=== PATIENT | female | born 1940 | race African-American/Black ===

== ENCOUNTER 2020-10-02 06:51 | Inpatient (IN) | payer MEDICARE, MEDICAID ==
[~2020-10-02] VITALS: Ht 157.5 cm; Wt 65.8 kg
[~2020-10-02 06:51] MED LIST: ALPR0.25; AMLO10TA4; DABI150C PO; SIMV10TA2; SOTA80TA; TRAM50TA3
[2020-10-02] MEDS ORDERED: IOHEXOL-350 100 ML BOTTLE ONE (07:36)
[2020-10-02 07:48] LABS: CLARITY URINE CLOUDY (CLEAR); COLOR URINE YELLOW (YELLOW); KETONES URINE NEGATIVE (NEGATIVE); LEUKOCYTE ESTERASE URINE 2+ (NEGATIVE); NITRITE URINE NEGATIVE (NEGATIVE); OCCULT BLOOD URINE 2+ (NEGATIVE); PH URINE 7.5 (4.5-8.0); PROTEIN URINE NEGATIVE (NEGATIVE); SPECIFIC GRAVITY URINE 1.014 (1.005-1.030); UROBILINOGEN URINE 0.2 E.U./dL (0.2-1.0)
[2020-10-02 08:06] LABS: *AMPHETAMINES SCREEN URINE NEGATIVE (NEGATIVE); *BARBITURATES SCREEN URINE NEGATIVE (NEGATIVE); *BENZODIAZEPINES SCREEN URINE NEGATIVE (NEGATIVE)
[2020-10-02 08:07] LABS: *COCAINE SCREEN URINE NEGATIVE (NEGATIVE); CANNABINOID URINE SCREEN NEGATIVE (NEGATIVE); METHADONE URINE SCREEN NEGATIVE (NEGATIVE); OPIATES URINE SCREEN NEGATIVE (NEGATIVE); PHENCYCLIDINE URINE SCREEN NEGATIVE (NEGATIVE)
[2020-10-02 08:38] LABS: BASOPHILS % 0.5 % (0.0-2.0); EOSINOPHILS % 4.2 % (0.0-5.0); HEMATOCRIT. 29.7 % (36.0-48.0); HEMOGLOBIN. 9.8 g/dL (12.0-16.0); LYMPHOCYTES % 14.5 % (20.0-50.0); MEAN CORPUSCULAR HEMOGLOBIN 28.2 pg (28.0-32.0); MEAN CORPUSCULAR VOLUME 85.7 fL (81.0-99.0); MEAN PLATELET VOLUME 8.3 fl (7.4-10.4); NEUTROPHILS % 73.8 % (40.0-76.0); PLATELET 245 x1000/uL (130-400); RED BLOOD CELL COUNT 3.46 mill/uL (4.2-5.4); RED CELL DISTRIBUTION WIDTH 14.7 % (11.6-14.6)
[2020-10-02 08:49] LABS: INR 1.1
[2020-10-02 08:50] LABS: ETHANOL BLOOD < 10 mg/dL
[2020-10-02 08:52] LABS: LDL CHOLESTEROL 61 mg/dL (5-100)
[2020-10-02 08:54] LABS: CHLORIDE 111 mEq/L (98-107)
[2020-10-02] MEDS ORDERED: CEFTRIAXONE 1 G PREMIX 50 ML IV ONE (09:00)
[2020-10-02] MEDS ORDERED: ACETAMINOPHEN 325MG TABLET PO PRN (09:45)
[2020-10-02] MEDS ORDERED: ONDANSETRON HCL 4MG/2ML INJ IV PRN (09:45)
[2020-10-02] MEDS ORDERED: MAGNESIUM/ALUMINUM HYDROXIDE/SIMETHICONE 30ML UDC PO PRN (09:45)
[2020-10-02] MEDS ORDERED: NA PHOS,M-B/NA PHOS,DI-BA ENEMA 118ML PR PRN (09:45)
[2020-10-02] MEDS ORDERED: GUAIFENESIN 200MG/10ML SUGAR FREE UDC PO PRN (09:45)
[2020-10-02] MEDS ORDERED: DOCUSATE SODIUM 100MG CAPSULE PO PRN (09:45)
[2020-10-02] MEDS ORDERED: CLONIDINE 0.1MG TABLET PO PRN (09:45)
[2020-10-02] MEDS ORDERED: DIPHENHYDRAMINE 50MG/ML VIAL IV PRN (09:45)
[2020-10-02] MEDS ORDERED: LEVOFLOXACIN 500MG PREMIX 100 ML IV SCH (10:00)
[2020-10-02 12:00] VITALS: BP 157/73
[2020-10-02 13:32] VITALS: BP 157/73
[2020-10-02 15:40] VITALS: BP 109/71
[2020-10-02 20:00] VITALS: BP 142/78
[2020-10-03] VITALS (7 sets, daily range): BP systolic 101–164; BP diastolic 59–78
[2020-10-03] MEDS: PANTOPRAZOLE 40MG DR TABLET PO SCH (06:20)
[2020-10-03 07:10] LABS: BASOPHILS % 0.3 % (0.0-2.0); EOSINOPHILS % 2.9 % (0.0-5.0); HEMATOCRIT. 26.4 % (36.0-48.0); HEMOGLOBIN. 8.8 g/dL (12.0-16.0); LYMPHOCYTES % 17.7 % (20.0-50.0); MEAN CORPUSCULAR HEMOGLOBIN 28.5 pg (28.0-32.0); MEAN CORPUSCULAR VOLUME 85.3 fL (81.0-99.0); MEAN PLATELET VOLUME 8.3 fl (7.4-10.4); MONOCYTES % 8.6 % (2.0-8.0); NEUTROPHILS % 70.5 % (40.0-76.0); PLATELET 271 x1000/uL (130-400); RED BLOOD CELL COUNT 3.09 mill/uL (4.2-5.4); RED CELL DISTRIBUTION WIDTH 14.7 % (11.6-14.6)
[2020-10-03] MEDS ORDERED: LEVOFLOXACIN 250MG PREMIX 50 ML IV SCH ×2 (09:00)
[2020-10-03] MEDS ORDERED: SODIUM CHLORIDE 0.45% 1,000 ML IV ONE (10:00)
[2020-10-03 12:01] LABS: TOTAL IRON BINDING CAPACITY 308 ug/dL (250-450)
[2020-10-03 12:51] LABS: T4 FREE 1.01 ng/dL (0.76-1.46)
[2020-10-03 13:11] LABS: CREATINE KINASE 112 IU/L (26-192); FOLIC ACID (FOLATE) SERUM >20 ng/mL ng/mL (>5.38)
[2020-10-03 13:23] LABS: VITAMIN B12 SERUM 274 pg/mL (211-911)
[2020-10-04] VITALS: BP 143/80
[2020-10-04 04:00] VITALS: BP 101/63
[2020-10-04] MEDS: PANTOPRAZOLE 40MG DR TABLET PO SCH (05:40)
[2020-10-04 08:00] VITALS: BP 140/71
[2020-10-04 12:00] VITALS: BP 152/70
[2020-10-04] MEDS: LEVOFLOXACIN 250MG TABLET PO SCH (12:20)
[2020-10-04] MEDS: AMLODIPINE 10MG TABLET PO SCH (12:22)
[2020-10-04 16:00] VITALS: BP 135/71
[2020-10-04 16:00] LABS: BASOPHILS % 0.4 % (0.0-2.0); EOSINOPHILS % 1.8 % (0.0-5.0); HEMATOCRIT. 29.6 % (36.0-48.0); HEMOGLOBIN. 9.8 g/dL (12.0-16.0); LYMPHOCYTES % 14.9 % (20.0-50.0); MEAN CORPUSCULAR HEMOGLOBIN 28.4 pg (28.0-32.0); MEAN CORPUSCULAR VOLUME 85.6 fL (81.0-99.0); MEAN PLATELET VOLUME 8.4 fl (7.4-10.4); MONOCYTES % 8.9 % (2.0-8.0); PLATELET 290 x1000/uL (130-400); RED BLOOD CELL COUNT 3.46 mill/uL (4.2-5.4); RED CELL DISTRIBUTION WIDTH 14.6 % (11.6-14.6)
[2020-10-04 20:00] VITALS: BP 128/67
[2020-10-04] MEDS: APIXABAN 5 MG TABLET PO SCH (21:01)
[2020-10-04] MEDS: SOTALOL HCL 80MG TABLET PO SCH (21:01)
[2020-10-04] MEDS: ATORVASTATIN CALCIUM 20MG TABLET PO SCH (21:01)
[2020-10-05] VITALS (7 sets, daily range): BP systolic 104–151; BP diastolic 60–81
[2020-10-05] MEDS: PANTOPRAZOLE 40MG DR TABLET PO SCH (06:25)
[2020-10-05 06:27] LABS: BASOPHILS % 0.4 % (0.0-2.0); EOSINOPHILS % 2.2 % (0.0-5.0); HEMOGLOBIN. 8.5 g/dL (12.0-16.0); LYMPHOCYTES % 18.3 % (20.0-50.0); MEAN CORPUSCULAR HEMOGLOBIN 28.1 pg (28.0-32.0); MEAN CORPUSCULAR VOLUME 85.5 fL (81.0-99.0); MEAN PLATELET VOLUME 8.3 fl (7.4-10.4); MONOCYTES % 8.8 % (2.0-8.0); NEUTROPHILS % 70.3 % (40.0-76.0); PLATELET 257 x1000/uL (130-400); RED BLOOD CELL COUNT 3.04 mill/uL (4.2-5.4); RED CELL DISTRIBUTION WIDTH 14.7 % (11.6-14.6)
[2020-10-05] MEDS: SOTALOL HCL 80MG TABLET PO SCH ×2 (08:56→20:14)
[2020-10-05] MEDS: AMLODIPINE 10MG TABLET PO SCH (08:56)
[2020-10-05] MEDS: APIXABAN 5 MG TABLET PO SCH (08:57)
[2020-10-05 10:27] LABS: TOTAL IRON BINDING CAPACITY 354 ug/dL (250-450)
[2020-10-05] MEDS: LEVOFLOXACIN 250MG TABLET PO SCH (10:46)
[2020-10-05 11:05] LABS: HEMATOCRIT 29.6 % (36.0-48.0); HEMOGLOBIN 9.8 g/dL (12.0-16.0)
[2020-10-05] MEDS ORDERED: SORBITOL 70% SOLN 30ML PO SCH ×2 (16:00→20:00)
[2020-10-05 16:05] LABS: INR 1.2; PROTHROMBIN TIME 12.5 sec (9.6-11.0)
[2020-10-05] MEDS: ATORVASTATIN CALCIUM 20MG TABLET PO SCH (20:14)
[2020-10-05] MEDS: PANTOPRAZOLE SODIUM 40 MG/VIAL IV SCH (22:43)
[2020-10-05] MEDS: DEXT 5%/0.45% NACL 1000ML 1,000 ML IV SCH (23:15)
[2020-10-06] VITALS (7 sets, daily range): BP systolic 115–128; BP diastolic 65–85
[2020-10-06] MEDS: SOTALOL HCL 80MG TABLET PO SCH ×2 (09:05→21:02)
[2020-10-06] MEDS: PANTOPRAZOLE SODIUM 40 MG/VIAL IV SCH ×2 (09:05→21:01)
[2020-10-06] MEDS: AMLODIPINE 10MG TABLET PO SCH (09:05)
[2020-10-06 09:09] LABS: BASOPHILS % 0.6 % (0.0-2.0); EOSINOPHILS % 0.5 % (0.0-5.0); HEMATOCRIT. 28.6 % (36.0-48.0); HEMOGLOBIN. 9.4 g/dL (12.0-16.0); LYMPHOCYTES % 13.5 % (20.0-50.0); MEAN CORPUSCULAR HEMOGLOBIN 28.1 pg (28.0-32.0); MEAN CORPUSCULAR VOLUME 85.5 fL (81.0-99.0); MEAN PLATELET VOLUME 9.1 fl (7.4-10.4); MONOCYTES % 9.1 % (2.0-8.0); NEUTROPHILS % 76.3 % (40.0-76.0); PLATELET 315 x1000/uL (130-400); RED BLOOD CELL COUNT 3.34 mill/uL (4.2-5.4); RED CELL DISTRIBUTION WIDTH 14.4 % (11.6-14.6)
[2020-10-06] MEDS: LEVOFLOXACIN 250MG TABLET PO SCH (11:00)
[2020-10-06] MEDS: DEXT 5%/0.45% NACL 1000ML 1,000 ML IV SCH (13:37)
[2020-10-06] MEDS ORDERED: MIDAZOLAM HCL 5 MG/5 ML VIAL IV PRN (17:50)
[2020-10-06] MEDS ORDERED: MIDAZOLAM HCL 5 MG/5 ML VIAL ONE (17:53)
[2020-10-06] MEDS ORDERED: FENTANYL CITRATE/PF 50MCG/ML 2ML VIAL ONE (17:53)
[2020-10-06] MEDS ORDERED: FENTANYL CITRATE/PF 50MCG/ML 2ML VIAL IV PRN (17:53)
[2020-10-06] MEDS: ATORVASTATIN CALCIUM 20MG TABLET PO SCH (21:01)
[2020-10-07] VITALS: BP 92/57
[2020-10-07] MEDS: DEXT 5%/0.45% NACL 1000ML 1,000 ML IV SCH (02:40)
[2020-10-07 04:00] VITALS: BP 90/46
[2020-10-07 08:20] VITALS: BP 125/60
[2020-10-07] MEDS: AMLODIPINE 10MG TABLET PO SCH (09:19)
[2020-10-07] MEDS: PANTOPRAZOLE SODIUM 40 MG/VIAL IV SCH (09:20)
[2020-10-07] MEDS: SOTALOL HCL 80MG TABLET PO SCH (09:22)
[2020-10-07 10:36] VITALS: BP 125/60
[2020-10-07] MEDS: LEVOFLOXACIN 250MG TABLET PO SCH (11:46)
[2020-10-07 11:56] VITALS: BP 106/52
== END 2020-10-07 15:55 | disposition home or self-care (01) | DRG 91 ==
LOC: ER 06:51 → 8WST 09:28 → EDBEDREQ 09:58 → CANRESERV 11:28 → ENRESERV 11:28 → EDBEDREQSVC 11:36 → ENRESERV 11:43 → UNDOADMIN 12:31 → 8WST 12:31
PROVIDERS: ADMIT Internal Medicine Nephrology; ATTEND Internal Medicine Nephrology
PROC: 4A10X4Z Monitoring of Central Nervous Electrical Activity, External Approach (ICD-10-PCS; 2020-10-04)
PROC: 0DJD8ZZ Inspection of Lower Intestinal Tract, Via Natural or Artificial Opening Endoscopic (ICD-10-PCS; principal; 2020-10-06)
PROC: 0DB68ZX Excision of Stomach, Via Natural or Artificial Opening Endoscopic, Diagnostic (ICD-10-PCS; 2020-10-06)
DX: G92 Toxic encephalopathy (principal); K57.31 Diverticulosis of large intestine without perforation or abscess with bleeding; K29.51 Unspecified chronic gastritis with bleeding; G45.9 Transient cerebral ischemic attack, unspecified; N39.0 Urinary tract infection, site not specified; I69.354 Hemiplegia and hemiparesis following cerebral infarction affecting left non-dominant side; N17.9 Acute kidney failure, unspecified; I10 Essential (primary) hypertension; I25.10 Atherosclerotic heart disease of native coronary artery without angina pectoris; R31.29 Other microscopic hematuria; K44.9 Diaphragmatic hernia without obstruction or gangrene; K64.8 Other hemorrhoids; E78.5 Hyperlipidemia, unspecified; G31.9 Degenerative disease of nervous system, unspecified; I48.0 Paroxysmal atrial fibrillation; D50.9 Iron deficiency anemia, unspecified; Z20.822 Contact with and (suspected) exposure to COVID-19; F41.9 Anxiety disorder, unspecified; I27.20 Pulmonary hypertension, unspecified; I37.1 Nonrheumatic pulmonary valve insufficiency; Z95.0 Presence of cardiac pacemaker; Z79.899 Other long term (current) drug therapy; Z88.8 Allergy status to other drugs, medicaments and biological substances; I69.328 Other speech and language deficits following cerebral infarction
CPT/HCPCS: 36415; 70496; 70498; 71045; 80048; 80053; 80061; 80305; 80320; 81003; 82140; 82270; 82550; 82607; 82746; 82962; 83036; 83540; 83550; 83721; 84439; 84443; 84481; 84484; 85014; 85018; 85025; 87426; 88305; 88312; 88313; 92523; 92610; 93005; 93306; 93970; 97116; 97162; 97166; 97530; 99152; 99291; C1893; C9113; G0378; J0696; J1956; J2250; J2405; J3010; J7040; Q9967; G0480; G0500

== ENCOUNTER 2021-08-22 21:20 | Inpatient (IN) | payer MEDICARE, MEDICAID ==
[~2021-08-22] VITALS: Ht 157.5 cm; Wt 63.2 kg
[2021-08-22 21:00] VITALS: BP 130/67
[2021-08-22 21:20] VITALS: BP 130/67
[~2021-08-22 21:20] MED LIST changes: -ALPR0.25; +APIX2.5T MT; -DABI150C PO; +LIP40 MT; -SIMV10TA2; -TRAM50TA3
[2021-08-22] MEDS ORDERED: GUAIFENESIN-DM 200MG-20MG/10ML UDC PO PRN (23:30)
[2021-08-22] MEDS ORDERED: CLONIDINE 0.1MG TABLET PO PRN (23:30)
[2021-08-22] MEDS ORDERED: BISACODYL 5MG TABLET PO PRN (23:30)
[2021-08-23 06:19] LABS: BASOPHILS % 0.1 % (0.0-2.0); EOSINOPHILS % 1.1 % (0.0-5.0); HEMATOCRIT. 35.3 % (36.0-48.0); HEMOGLOBIN. 11.7 g/dL (12.0-16.0); LYMPHOCYTES % 12.6 % (20.0-50.0); MEAN CORPUSCULAR HEMOGLOBIN 28.9 pg (28.0-32.0); MEAN CORPUSCULAR VOLUME 87.3 fL (81.0-99.0); MEAN PLATELET VOLUME 8.8 fl (7.4-10.4); MONOCYTES % 8.7 % (2.0-8.0); NEUTROPHILS % 77.5 % (40.0-76.0); PLATELET 163 x1000/uL (130-400); RED BLOOD CELL COUNT 4.05 mill/uL (4.2-5.4)
[2021-08-23 06:32] LABS: CHLORIDE 109 mEq/L (98-107)
[2021-08-23 08:00] VITALS: BP 103/55
[2021-08-23] MEDS: SOTALOL HCL 80MG TABLET PO SCH ×2 (08:45→17:41)
[2021-08-23] MEDS: TRAMADOL 50MG TABLET PO PRN (08:45)
[2021-08-23] MEDS: AMLODIPINE 10MG TABLET PO SCH (08:52)
[2021-08-23] MEDS: LOSARTAN POTASSIUM 100 MG TABLET PO SCH (08:52)
[2021-08-23] MEDS ORDERED: NALOXONE HCL 0.4MG/ML VIAL IV PRN (16:45)
[2021-08-23 20:00] VITALS: BP 143/71
[2021-08-23] MEDS: ATORVASTATIN CALCIUM 40MG TABLET PO SCH (21:56)
[2021-08-23] MEDS: MIRTAZAPINE 15MG TABLET PO SCH (21:57)
[2021-08-24 06:37] LABS: BASOPHILS % 0.1 % (0.0-2.0); EOSINOPHILS % 0.8 % (0.0-5.0); HEMATOCRIT. 33.6 % (36.0-48.0); HEMOGLOBIN. 11.3 g/dL (12.0-16.0); LYMPHOCYTES % 11.7 % (20.0-50.0); MEAN CORPUSCULAR HEMOGLOBIN 29.3 pg (28.0-32.0); MEAN CORPUSCULAR VOLUME 86.9 fL (81.0-99.0); MEAN PLATELET VOLUME 8.4 fl (7.4-10.4); MONOCYTES % 8.7 % (2.0-8.0); NEUTROPHILS % 78.7 % (40.0-76.0); PLATELET 151 x1000/uL (130-400); RED BLOOD CELL COUNT 3.87 mill/uL (4.2-5.4); RED CELL DISTRIBUTION WIDTH 14.7 % (11.6-14.6)
[2021-08-24 07:06] LABS: CHLORIDE 106 mEq/L (98-107)
[2021-08-24 07:21] LABS: TOTAL IRON BINDING CAPACITY 221 ug/dL (250-450)
[2021-08-24 07:43] LABS: FOLIC ACID (FOLATE) SERUM 15.2 ng/mL (>5.38)
[2021-08-24 08:00] VITALS: BP 135/62
[2021-08-24] MEDS: LOSARTAN POTASSIUM 100 MG TABLET PO SCH (08:43)
[2021-08-24] MEDS: TRAMADOL 50MG TABLET PO PRN (08:44)
[2021-08-24] MEDS ORDERED: ACETAMINOPHEN 325MG TABLET PO PRN (10:30)
[2021-08-24] MEDS: SOTALOL HCL 80MG TABLET PO SCH ×2 (10:33→17:07)
[2021-08-24] MEDS: AMLODIPINE 10MG TABLET PO SCH (10:34)
[2021-08-24] MEDS: APIXABAN 2.5 MG TABLET PO SCH ×2 (10:34→17:07)
[2021-08-24] MEDS ORDERED: ONDANSETRON HCL 4MG TABLET PO PRN (11:30)
[2021-08-24] MEDS ORDERED: LACTULOSE 20G/30ML UDC PO PRN (11:30)
[2021-08-24] MEDS: CYANOCOBALAMIN 1000MCG/ML VIAL IM SCH (14:54)
[2021-08-24] MEDS: DOCUSATE SODIUM 100MG CAPSULE PO SCH (17:06)
[2021-08-24] MEDS: FERROUS SULFATE 325MG TABLET PO SCH (17:07)
[2021-08-24 20:00] VITALS: BP 147/76
[2021-08-24] MEDS: ATORVASTATIN CALCIUM 40MG TABLET PO SCH (21:40)
[2021-08-24] MEDS: MIRTAZAPINE 15MG TABLET PO SCH (21:40)
[2021-08-25 06:54] LABS: BASOPHILS % 0.1 % (0.0-2.0); EOSINOPHILS % 1.5 % (0.0-5.0); HEMATOCRIT. 30.6 % (36.0-48.0); HEMOGLOBIN. 10.4 g/dL (12.0-16.0); LYMPHOCYTES % 13.3 % (20.0-50.0); MEAN CORPUSCULAR HEMOGLOBIN 29.3 pg (28.0-32.0); MEAN CORPUSCULAR VOLUME 85.8 fL (81.0-99.0); MEAN PLATELET VOLUME 8.5 fl (7.4-10.4); MONOCYTES % 10.2 % (2.0-8.0); NEUTROPHILS % 74.9 % (40.0-76.0); PLATELET 148 x1000/uL (130-400); RED BLOOD CELL COUNT 3.56 mill/uL (4.2-5.4); RED CELL DISTRIBUTION WIDTH 14.5 % (11.6-14.6)
[2021-08-25 07:34] LABS: T4 FREE 1.32 ng/dL (0.76-1.46)
[2021-08-25 08:00] VITALS: BP 131/60
[2021-08-25] MEDS: POLYETHYLENE GLYCOL 3350 (17GM) 1 DOSE PACK PO SCH (09:00)
[2021-08-25] MEDS: ACETAMINOPHEN 500MG TABLET PO PRN (09:14)
[2021-08-25] MEDS: ASCORBIC ACID 500 MG TABLET PO SCH (09:15)
[2021-08-25] MEDS: FERROUS SULFATE 325MG TABLET PO SCH ×3 (09:15→18:14)
[2021-08-25] MEDS: LOSARTAN POTASSIUM 100 MG TABLET PO SCH (09:15)
[2021-08-25] MEDS: APIXABAN 2.5 MG TABLET PO SCH ×2 (09:15→18:15)
[2021-08-25] MEDS: DOCUSATE SODIUM 100MG CAPSULE PO SCH ×2 (09:16→18:14)
[2021-08-25] MEDS: AMLODIPINE 10MG TABLET PO SCH (09:16)
[2021-08-25] MEDS: CYANOCOBALAMIN 1000MCG/ML VIAL IM SCH (09:17)
[2021-08-25] MEDS: SOTALOL HCL 80MG TABLET PO SCH ×2 (09:17→18:15)
[2021-08-25 20:00] VITALS: BP 117/64
[2021-08-25] MEDS: ATORVASTATIN CALCIUM 40MG TABLET PO SCH (22:15)
[2021-08-25] MEDS: MIRTAZAPINE 15MG TABLET PO SCH (22:15)
[2021-08-25] MEDS: TRAMADOL 50MG TABLET PO PRN (22:17)
[2021-08-26] MEDS: ACETAMINOPHEN 500MG TABLET PO PRN (00:49)
[2021-08-26 01:05] VITALS: BP 117/64
[2021-08-26 08:00] VITALS: BP 134/56
[2021-08-26] MEDS: POLYETHYLENE GLYCOL 3350 (17GM) 1 DOSE PACK PO SCH (09:00)
[2021-08-26] MEDS: AMLODIPINE 10MG TABLET PO SCH (09:30)
[2021-08-26] MEDS: ASCORBIC ACID 500 MG TABLET PO SCH (09:30)
[2021-08-26] MEDS: SOTALOL HCL 80MG TABLET PO SCH ×2 (09:31→17:45)
[2021-08-26] MEDS: FERROUS SULFATE 325MG TABLET PO SCH ×3 (09:31→17:45)
[2021-08-26] MEDS: APIXABAN 2.5 MG TABLET PO SCH ×2 (09:31→17:45)
[2021-08-26] MEDS: LOSARTAN POTASSIUM 100 MG TABLET PO SCH (09:31)
[2021-08-26] MEDS: DOCUSATE SODIUM 100MG CAPSULE PO SCH ×2 (09:31→17:45)
[2021-08-26] MEDS: CYANOCOBALAMIN 1000MCG/ML VIAL IM SCH (09:32)
[2021-08-26 20:00] VITALS: BP 135/61
[2021-08-26 20:28] LABS: CLARITY URINE CLEAR (CLEAR); COLOR URINE YELLOW (YELLOW); KETONES URINE NEGATIVE (NEGATIVE); LEUKOCYTE ESTERASE URINE 2+ (NEGATIVE); NITRITE URINE NEGATIVE (NEGATIVE); OCCULT BLOOD URINE NEGATIVE (NEGATIVE); PH URINE 5.5 (4.5-8.0); PROTEIN URINE TRACE (NEGATIVE); SPECIFIC GRAVITY URINE 1.018 (1.005-1.030)
[2021-08-26] MEDS: TRAMADOL 50MG TABLET PO PRN (22:05)
[2021-08-26] MEDS: ATORVASTATIN CALCIUM 40MG TABLET PO SCH (22:05)
[2021-08-26] MEDS: MIRTAZAPINE 15MG TABLET PO SCH (22:06)
[2021-08-27 07:59] VITALS: BP 128/64
[2021-08-27 08:00] LABS: BASOPHILS % 0.1 % (0.0-2.0); EOSINOPHILS % 1.4 % (0.0-5.0); HEMATOCRIT. 32.3 % (36.0-48.0); HEMOGLOBIN. 10.9 g/dL (12.0-16.0); LYMPHOCYTES % 13.5 % (20.0-50.0); MEAN CORPUSCULAR HEMOGLOBIN 29.7 pg (28.0-32.0); MEAN CORPUSCULAR VOLUME 87.8 fL (81.0-99.0); MEAN PLATELET VOLUME 8.2 fl (7.4-10.4); MONOCYTES % 8.7 % (2.0-8.0); NEUTROPHILS % 76.3 % (40.0-76.0); PLATELET 185 x1000/uL (130-400); RED BLOOD CELL COUNT 3.68 mill/uL (4.2-5.4); RED CELL DISTRIBUTION WIDTH 14.2 % (11.6-14.6)
[2021-08-27] MEDS: CYANOCOBALAMIN 1000MCG/ML VIAL IM SCH (08:20)
[2021-08-27] MEDS: POLYETHYLENE GLYCOL 3350 (17GM) 1 DOSE PACK PO SCH ×2 (08:20→08:28)
[2021-08-27] MEDS: LOSARTAN POTASSIUM 100 MG TABLET PO SCH (08:21)
[2021-08-27] MEDS: ASCORBIC ACID 500 MG TABLET PO SCH (08:21)
[2021-08-27] MEDS: DOCUSATE SODIUM 100MG CAPSULE PO SCH ×2 (08:21→16:33)
[2021-08-27] MEDS: APIXABAN 2.5 MG TABLET PO SCH ×2 (08:21→16:34)
[2021-08-27] MEDS: AMLODIPINE 10MG TABLET PO SCH (08:21)
[2021-08-27] MEDS: FERROUS SULFATE 325MG TABLET PO SCH ×3 (08:21→16:33)
[2021-08-27] MEDS: SOTALOL HCL 80MG TABLET PO SCH ×2 (08:21→16:33)
[2021-08-27 08:22] LABS: CHLORIDE 107 mEq/L (98-107)
[2021-08-27] MEDS: TRAMADOL 50MG TABLET PO PRN (15:12)
[2021-08-27] MEDS: ATORVASTATIN CALCIUM 40MG TABLET PO SCH (22:44)
[2021-08-27] MEDS: MIRTAZAPINE 15MG TABLET PO SCH (22:45)
[2021-08-27 22:50] VITALS: BP 126/65
[2021-08-28] MEDS: TRAMADOL 50MG TABLET PO PRN (02:11)
[2021-08-28 08:00] VITALS: BP 109/68
[2021-08-28] MEDS: AMLODIPINE 10MG TABLET PO SCH (09:00)
[2021-08-28] MEDS: SOTALOL HCL 80MG TABLET PO SCH ×2 (09:00→16:05)
[2021-08-28] MEDS: LOSARTAN POTASSIUM 100 MG TABLET PO SCH (09:00)
[2021-08-28] MEDS: ASCORBIC ACID 500 MG TABLET PO SCH (09:28)
[2021-08-28] MEDS: APIXABAN 2.5 MG TABLET PO SCH ×2 (09:28→16:06)
[2021-08-28] MEDS: DOCUSATE SODIUM 100MG CAPSULE PO SCH ×2 (09:28→16:08)
[2021-08-28] MEDS: FERROUS SULFATE 325MG TABLET PO SCH ×3 (09:28→16:06)
[2021-08-28] MEDS: POLYETHYLENE GLYCOL 3350 (17GM) 1 DOSE PACK PO SCH (09:33)
[2021-08-28] MEDS: CYANOCOBALAMIN 1000MCG/ML VIAL IM SCH (09:33)
[2021-08-28 16:00] VITALS: BP 120/61
[2021-08-28 20:00] VITALS: BP 114/44
[2021-08-28] MEDS: ATORVASTATIN CALCIUM 40MG TABLET PO SCH (21:00)
[2021-08-28] MEDS: MIRTAZAPINE 15MG TABLET PO SCH (21:00)
[2021-08-28] MEDS: ACETAMINOPHEN 500MG TABLET PO PRN (22:10)
[2021-08-29 08:00] VITALS: BP 110/62
[2021-08-29] MEDS: APIXABAN 2.5 MG TABLET PO SCH ×2 (08:26→16:40)
[2021-08-29] MEDS: FERROUS SULFATE 325MG TABLET PO SCH ×3 (08:26→16:40)
[2021-08-29] MEDS: ASCORBIC ACID 500 MG TABLET PO SCH (08:26)
[2021-08-29] MEDS: CYANOCOBALAMIN 1000MCG/ML VIAL IM SCH (08:26)
[2021-08-29] MEDS: POLYETHYLENE GLYCOL 3350 (17GM) 1 DOSE PACK PO SCH (08:27)
[2021-08-29] MEDS: DOCUSATE SODIUM 100MG CAPSULE PO SCH ×2 (08:27→16:40)
[2021-08-29] MEDS: SOTALOL HCL 80MG TABLET PO SCH ×2 (08:36→16:41)
[2021-08-29] MEDS: AMLODIPINE 10MG TABLET PO SCH (08:37)
[2021-08-29] MEDS: LOSARTAN POTASSIUM 100 MG TABLET PO SCH (08:37)
[2021-08-29] MEDS: ACETAMINOPHEN 500MG TABLET PO PRN ×2 (15:51→23:19)
[2021-08-29 20:00] VITALS: BP 125/66
[2021-08-29] MEDS: ATORVASTATIN CALCIUM 40MG TABLET PO SCH (23:16)
[2021-08-29] MEDS: MIRTAZAPINE 15MG TABLET PO SCH (23:25)
[2021-08-30 08:00] VITALS: BP 127/61
[2021-08-30] MEDS: APIXABAN 2.5 MG TABLET PO SCH ×2 (08:56→17:16)
[2021-08-30] MEDS: SOTALOL HCL 80MG TABLET PO SCH ×2 (08:56→17:17)
[2021-08-30] MEDS: FERROUS SULFATE 325MG TABLET PO SCH ×3 (08:56→17:16)
[2021-08-30] MEDS: ASCORBIC ACID 500 MG TABLET PO SCH (08:56)
[2021-08-30] MEDS: AMLODIPINE 10MG TABLET PO SCH (08:56)
[2021-08-30] MEDS: DOCUSATE SODIUM 100MG CAPSULE PO SCH ×2 (08:56→17:17)
[2021-08-30] MEDS: CYANOCOBALAMIN 1000MCG/ML VIAL IM SCH (08:57)
[2021-08-30] MEDS: POLYETHYLENE GLYCOL 3350 (17GM) 1 DOSE PACK PO SCH (08:57)
[2021-08-30] MEDS: LOSARTAN POTASSIUM 100 MG TABLET PO SCH (08:57)
[2021-08-30 20:00] VITALS: BP 130/73
[2021-08-30] MEDS: ATORVASTATIN CALCIUM 40MG TABLET PO SCH (22:23)
[2021-08-30] MEDS: MIRTAZAPINE 15MG TABLET PO SCH (22:24)
[2021-08-30] MEDS: TRAMADOL 50MG TABLET PO PRN (22:27)
[2021-08-31 08:00] VITALS: BP 105/54
[2021-08-31] MEDS: DOCUSATE SODIUM 100MG CAPSULE PO SCH ×2 (08:18→17:00)
[2021-08-31] MEDS: ASCORBIC ACID 500 MG TABLET PO SCH (08:18)
[2021-08-31] MEDS: APIXABAN 2.5 MG TABLET PO SCH ×2 (08:19→17:01)
[2021-08-31] MEDS: SOTALOL HCL 80MG TABLET PO SCH ×2 (08:19→17:01)
[2021-08-31] MEDS: AMLODIPINE 10MG TABLET PO SCH (08:20)
[2021-08-31] MEDS: POLYETHYLENE GLYCOL 3350 (17GM) 1 DOSE PACK PO SCH (08:20)
[2021-08-31] MEDS: LOSARTAN POTASSIUM 100 MG TABLET PO SCH (08:20)
[2021-08-31] MEDS: FERROUS SULFATE 325MG TABLET PO SCH ×3 (08:20→17:01)
[2021-08-31 20:00] VITALS: BP 145/60
[2021-08-31] MEDS: ATORVASTATIN CALCIUM 40MG TABLET PO SCH (22:15)
[2021-08-31] MEDS: MIRTAZAPINE 15MG TABLET PO SCH (22:17)
[2021-09-01 08:00] VITALS: BP 108/61
[2021-09-01] MEDS: POLYETHYLENE GLYCOL 3350 (17GM) 1 DOSE PACK PO SCH (08:50)
[2021-09-01] MEDS: FERROUS SULFATE 325MG TABLET PO SCH (08:50)
[2021-09-01] MEDS: APIXABAN 2.5 MG TABLET PO SCH (08:50)
[2021-09-01] MEDS: ASCORBIC ACID 500 MG TABLET PO SCH (08:53)
[2021-09-01] MEDS: DOCUSATE SODIUM 100MG CAPSULE PO SCH (08:54)
[2021-09-01] MEDS: SOTALOL HCL 80MG TABLET PO SCH (08:55)
[2021-09-01] MEDS: LOSARTAN POTASSIUM 100 MG TABLET PO SCH (08:56)
[2021-09-01] MEDS: AMLODIPINE 10MG TABLET PO SCH (08:56)
[2021-09-01 10:50] VITALS: BP 108/61
[2021-09-01] MEDS ORDERED: NALOXONE HCL 0.4MG/ML VIAL IV PRN (11:30)
[2021-09-02 06:08] LABS: 25-HYDROXY VITAMIN D3 3.6 ng/mL (.)
[2021-09-06] MEDS ORDERED: CYANOCOBALAMIN 1000MCG/ML VIAL IM SCH (09:00)
== END 2021-09-01 12:00 | disposition home health service (06) | DRG 551 ==
PROVIDERS: ADMIT Physical Medicine & Rehabilitation Spinal Cord Injury Medicine; ATTEND Internal Medicine
DX: M48.02 Spinal stenosis, cervical region (principal); G82.50 Quadriplegia, unspecified; I69.354 Hemiplegia and hemiparesis following cerebral infarction affecting left non-dominant side; G95.9 Disease of spinal cord, unspecified; E46 Unspecified protein-calorie malnutrition; M17.0 Bilateral primary osteoarthritis of knee; I48.91 Unspecified atrial fibrillation; N18.1 Chronic kidney disease, stage 1; M54.12 Radiculopathy, cervical region; I12.9 Hypertensive chronic kidney disease with stage 1 through stage 4 chronic kidney disease, or unspecified chronic kidney disease; F41.9 Anxiety disorder, unspecified; F39 Unspecified mood [affective] disorder; F01.50 Vascular dementia, unspecified severity, without behavioral disturbance, psychotic disturbance, mood disturbance, and anxiety; E87.6 Hypokalemia; E61.1 Iron deficiency; E53.8 Deficiency of other specified B group vitamins; D64.9 Anemia, unspecified; D72.829 Elevated white blood cell count, unspecified; R13.10 Dysphagia, unspecified; R94.6 Abnormal results of thyroid function studies; R80.9 Proteinuria, unspecified; R53.81 Other malaise; Z98.1 Arthrodesis status; I69.322 Dysarthria following cerebral infarction; Z82.49 Family history of ischemic heart disease and other diseases of the circulatory system; Z95.0 Presence of cardiac pacemaker; R53.1 Weakness; Z68.25 Body mass index [BMI] 25.0-25.9, adult; R26.81 Unsteadiness on feet; M79.609 Pain in unspecified limb
CPT/HCPCS: 36415; 71046; 80048; 80053; 81003; 82306; 82607; 82728; 82746; 83540; 83550; 84134; 84439; 84443; 84481; 85025; 92523; 92610; 93970; 97110; 97112; 97116; 97150; 97162; 97166; 97530; 97535; J3420; L0172; Q0162